=== PATIENT | male | born 1965 | race Caucasian/White ===

== ENCOUNTER 2017-02-04 07:28 | Emergency (ER) | payer OTHER ==
[2017-02-04 07:38] VITALS: BP 148/96
--- NOTE | 2017-02-04 07:49 | UC ---
Respiratory Complaint HPI - HPI Summary HPI Summary: 51 yo male with cough x 1 week some times productive chest tightness and wheezing no CP or SOB no F/C - History of Current Complaint Chief Complaint: UCRespiratory Stated Complaint: COUGH Time Seen by Provider: 02/04/17 07:40 Hx Obtained From: Patient Onset/Duration: Gradual Onset, Lasting Weeks - 1 Timing: Constant Severity Initially: Mild Severity Currently: Moderate Pain Intensity: 1 Pain Scale Used: 0-10 Numeric Character: Cough: Productive Aggravating Factors: Nothing Alleviating Factors: Nothing Associated Signs And Symptoms: Positive: Wheezing - Allergies/Home Medications Allergies/Adverse Reactions: Allergies Allergy/AdvReac Type Severity Reaction Status Date / Time No Known Allergies Allergy Verified 02/04/17 07:34 Home Medications: Home Medications Pseudoephedrine-Guaifenesin [Mucinex D 60-600 mg] 1 tab PO DAILY 02/04/17 [ History Confirmed 02/04/17] PMH/Surg Hx/FS Hx/Imm Hx Previously Healthy: Yes Respiratory History: Asthma - Surgical History Surgical History: None - Family History Known Family History: Positive: Hypertension - Both parents, Diabetes - Mother, Respiratory Disease, Other - Alzheimer's (mother), Parkinson's (father) - Social History Alcohol Use: None Substance Use Type: None Smoking Status (MU): Never Smoked Tobacco - Immunization History Most Recent Influenza Vaccination: unknown Most Recent Tetanus Shot: ?10 years ago? Review of Systems Constitutional: Negative Skin: Negative Eyes: Negative ENT: Negative Respiratory: Cough Cardiovascular: Negative Gastrointestinal: Negative Genitourinary: Negative Motor: Negative Neurovascular: Negative Musculoskeletal: Negative Neurological: Negative Psychological: Negative Is Patient Immunocompromised?: No All Other Systems Reviewed And Are Negative: Yes Physical Exam Triage Information Reviewed: Yes Appearance: Well-Appearing, No Pain Distress, Well-Nourished Vital Signs: Initial Vital Signs Temp 98 F 02/04/17 07:36 Pulse 95 02/04/17 07:36 Resp 18 02/04/17 07:36 BP 148/96 02/04/17 07:36 Pulse Ox 98 02/04/17 07:36 Eyes: Positive: Conjunctiva Clear ENT: Positive: Hearing grossly normal. Negative: Nasal congestion, Nasal drainage, Trismus, Muffled/hoarse voice Neck: Positive: Supple, Nontender Respiratory: Positive: No respiratory distress, No accessory muscle use, Wheezing - with forced expiration Cardiovascular: Positive: RRR, No Murmur Neurological: Positive: Alert Psychological Exam: Normal Skin Exam: Normal UC Diagnostic Evaluation - Laboratory O2 Sat by Pulse Oximetry: 98 - normal/not hypoxic Respiratory Course/Dx - Differential Dx/Diagnosis Provider Diagnoses: acute bronchitis with bronchospasm. elevated BP Discharge - Discharge Plan Condition: Stable Disposition: HOME Prescriptions: Albuterol HFA INHALER* [Ventolin HFA Inhaler*] 2 puff INH QID #1 mdi Amoxicillin PO (*) [Amoxicillin 875 MG (*)] 875 mg PO BID #14 tab Prednisone [Deltasone] 40 mg PO DAILY #10 tab Patient Education Materials: Acute Bronchitis (ED) Referrals: Maria Eugenia Narvaez MD [Primary Care Provider] - 4 Days (if not better) Additional Instructions: I suggest you get your BP rechecked in 4-8 weeks
== END 2017-02-04 07:50 | disposition home or self-care (01) ==
LOC: UCEAST 07:28
DX: J20.9 Acute bronchitis, unspecified (principal); R03.0 Elevated blood-pressure reading, without diagnosis of hypertension
CPT/HCPCS: 99212; G0463

== ENCOUNTER 2017-03-11 07:10 | Emergency (ER) | payer OTHER ==
[2017-03-11 07:30] VITALS: BP 165/100
--- NOTE | 2017-03-11 07:56 | UC ---
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 NO INJURY PAIN WITH WT BEARING - History of Current Complaint Chief Complaint: UCLowerExtremity Stated Complaint: ANKLE PAIN Time Seen by Provider: 03/11/17 07:38 Hx Obtained From: Patient Onset/Duration: Gradual Onset, Lasting Days Severity Initially: Moderate Severity Currently: Moderate Pain Intensity: 6 Pain Scale Used: 0-10 Numeric Aggravating Factor(s): Standing, Ambulation Alleviating Factor(s): Rest, Elevation, Ice Able to Bear Weight: Yes - Allergies/Home Medications Allergies/Adverse Reactions: Allergies Allergy/AdvReac Type Severity Reaction Status Date / Time No Known Allergies Allergy Verified 03/11/17 07:30 Home Medications: Home Medications Acetaminophen [Acetaminophen Extra Stren] 2 tab PO Q8HR PRN 03/11/17 [History Confirmed 03/11/17] PMH/Surg Hx/FS Hx/Imm Hx Previously Healthy: Yes - Surgical History Surgical History: None - Family History Known Family History: Positive: Hypertension - Both parents, Diabetes - Mother, Respiratory Disease, Other - Alzheimer's (mother), Parkinson's (father) - Social History Alcohol Use: None Substance Use Type: None Smoking Status (MU): Never Smoked Tobacco Household Exposure Type: Cigarettes - Immunization History Most Recent Influenza Vaccination: Not UTD Most Recent Tetanus Shot: ?10 years ago? Review of Systems Constitutional: Negative Skin: Negative Eyes: Negative ENT: Negative Respiratory: Negative Cardiovascular: Negative Gastrointestinal: Negative Genitourinary: Negative Motor: Negative Neurovascular: Negative Musculoskeletal: Arthralgia Neurological: Negative Psychological: Negative Is Patient Immunocompromised?: No All Other Systems Reviewed And Are Negative: Yes Physical Exam Triage Information Reviewed: Yes Appearance: Well-Appearing, No Pain Distress, Well-Nourished Vital Signs: Initial Vital Signs Temp 98.4 F 03/11/17 07:27 Pulse 93 03/11/17 07:27 Resp 16 03/11/17 07:27 BP 165/100 03/11/17 07:27 Pulse Ox 97 03/11/17 07:27 Vital Signs Reviewed: Yes Eyes: Positive: Conjunctiva Clear ENT: Positive: Hearing grossly normal. Negative: Nasal congestion, Nasal drainage, Tonsillar exudate, Trismus, Muffled/hoarse voice Neck: Positive: Supple, Nontender Respiratory: Positive: Lungs clear, Normal breath sounds, No respiratory distress, No accessory muscle use Cardiovascular: Positive: RRR, No Murmur Musculoskeletal: Positive: ROM Intact, No Edema, Other: - TENDER LEFT MEDAIL MALLEOLUS Neurological: Positive: Alert Psychological Exam: Normal Skin Exam: Normal Diagnostics - Radiology No standard instances Xray Interpretation: No Acute Changes - negative for fracture or malalignment. No significant arthropathic change evident. Peripheral vascular calcifications. Unremarkable soft tissue contour Radiology Interpretation Completed By: Radiologist Lower Extremity Course/Dx - Differential Dx/Diagnosis Provider Diagnoses: LEFT ANKLE PAIN OF UNCERTAIN CAUSE. ELEVATED BP Discharge - Discharge Plan Condition: Stable Disposition: HOME Prescriptions: Meloxicam [Mobic] 15 mg PO DAILY #14 tab Patient Education Materials: Arthralgia (ED) Forms: *Work Release Referrals: Maria Eugenia Narvaez MD [Primary Care Provider] - 2 Weeks Additional Instructions: I AM NOT SURE WHAT IS CAUSING YOUR ANKLE PAIN- YOUR XR DID NOT SHOW ANY EMILEE PROBLEM TRY THE CAM BOOT ELEVATE ICE CONTINUE TYLENOL TRY MOBIC SEE YOUR MD IN 1-2 WEEKS FOR ANKLE RECHECK YOUR BP WAS ELEVATED HERE AND NEEDS RECHECKING YOUR XR SHOWED CALCIFIED VESSELS AND NEEDS FOLLOWING
--- NOTE | 2017-03-11 07:59 | UC ---
Progress - Progress Note Progress Note: PLEASE NOTIFY PT SHE IS MILDLY ANEMIC F/U WITH PMD ABOUT THIS
--- NOTE | 2017-03-11 08:16 | RAD ---
Indication: LEFT ankle pain without proceeding injury. Comparison: August 11, 2015 Technique: AP, mortise, and lateral views LEFT ankle. Report: Negative for fracture or malalignment. No significant arthropathic change evident. Peripheral vascular calcifications. Unremarkable soft tissue contours. IMPRESSION: Negative exam.
== END 2017-03-11 08:33 | disposition home or self-care (01) ==
LOC: UCEAST 07:10
DX: M25.572 Pain in left ankle and joints of left foot (principal); D64.9 Anemia, unspecified
CPT/HCPCS: 99213; G0463